=== PATIENT | male | born 1965 ===

== ENCOUNTER 2016-07-29 23:10 | Emergency (ER) | payer SELFPAY ==
[2016-07-29 23:23] VITALS: RESP 18; TEMP 97.9
--- NOTE | 2016-07-29 23:45 | ED PDOC ---
Arrival/HPI - General Chief Complaint: High Blood Pressure Time Seen by Provider: 07/29/16 23:17 Historian: Patient - History of Present Illness Narrative History of Present Illness (Text): 07/29/16 23:40 Miguel Saenz is a 51 year old male, whose past medical history includes hypertension and diabetes, who presents to the Emergency department complaining of high blood pressure. Patient states he is currently visiting from [facility] and recently ran out of sample hypertension medication a few days prior. Patient states he noted his blood pressure was elevated and is requesting medication refill.Pt. also is taking oral agent for his DM which he has. Patient denies any headache, dizziness, vision changes, focal neurological deficits, chest pain, shortness of breath, abdominal pain, nausea, vomiting, diarrhea, neck pain, or any other complaints. Symptom Onset: Gradual Symptom Course: Unchanged Activities at Onset: Rest, Light Context: Home Past Medical History - Provider Review Nursing Documentation Reviewed: Yes - Cardiac Hx Hypertension: Yes - Endocrine/Metabolic Hx Diabetes Mellitus Type 2: Yes - Psychiatric Hx Substance Use: No Family/Social History - Physician Review Nursing Documentation Reviewed: Yes Family/Social History: No Known Family HX Smoking Status: no Hx Alcohol Use: No Hx Substance Use: No Allergies/Home Meds Allergies/Adverse Reactions: Allergies No Known Allergies Allergy (Verified 07/29/16 23:23) Home Medications: Home Meds Medication Instructions Recorded Confirmed Valsartan [Diovan] 160 mg PO DAILY 07/29/16 07/29/16 Review of Systems - Physician Review All systems were reviewed & negative as marked: Yes - Review of Systems Constitutional: Normal. absent: Fevers Eyes: Normal ENT: Normal Respiratory: Normal. absent: SOB, Cough Cardiovascular: Other (+high blood pressure) Gastrointestinal: Normal. absent: Abdominal Pain, Diarrhea, Nausea, Vomiting Genitourinary Male: Normal. absent: Dysuria, Frequency, Hematuria, Urinary Output Changes Musculoskeletal: Normal. absent: Back Pain, Neck Pain Skin: Normal. absent: Rash Neurological: Normal. absent: Headache, Dizziness Endocrine: Normal Hemo/Lymphatic: Normal Psychiatric: Normal Physical Exam Vital Signs Reviewed: Yes Vital Signs Temp Pulse Resp BP Pulse Ox 07/30/16 01:38 90 18 149/98 H 99 07/30/16 00:00 98 H 158/108 H 07/29/16 23:59 91 H 158/108 H 07/29/16 23:19 97.9 F 94 H 18 158/108 H 98 Temperature: Afebrile Blood Pressure: Hypertensive Pulse: Regular Respiratory Rate: Normal Appearance: Positive for: Well-Appearing, Non-Toxic, Comfortable Pain Distress: None Mental Status: Positive for: Alert and Oriented X 3 - Systems Exam Head: Present: Atraumatic, Normocephalic Pupils: Present: PERRL Extroacular Muscles: Present: EOMI Conjunctiva: Present: Normal Mouth: Present: Moist Mucous Membranes Neck: Present: Normal Range of Motion. No: Meningeal Signs, MIDLINE TENDERNESS , Paraspinal Tenderness Respiratory/Chest: Present: Clear to Auscultation, Good Air Exchange. No: Respiratory Distress, Accessory Muscle Use Cardiovascular: Present: Regular Rate and Rhythm, Normal S1, S2. No: Murmurs Abdomen: Present: Normal Bowel Sounds. No: Tenderness, Distention, Peritoneal Signs Back: Present: Normal Inspection Upper Extremity: Present: Normal Inspection. No: Cyanosis, Edema Lower Extremity: Present: Normal Inspection. No: Edema Neurological: Present: GCS=15, CN II-XII Intact, Speech Normal, Motor Func Grossly Intact, Normal Sensory Function, Normal Cerebellar Funct, Gait Normal, Memory Normal Skin: Present: Warm, Dry, Normal Color. No: Rashes Psychiatric: Present: Alert, Oriented x 3, Normal Insight, Normal Concentration Medical Decision Making ED Course and Treatment: 07/29/16 23:40 Impression: 51 year old male complaining of high blood pressure. Differential Diagnosis include but are not limited to: hypertension Plan: -- Labs -- Yina Duckworth -- Reassess and disposition Progress Notes: - Lab Interpretations Lab Results: 07/29/16 23:35 07/29/16 23:35 Lab Results 07/30/16 01:36: POC Glucose (mg/dL) 342 H 07/29/16 23:35: Sodium 133, Potassium 4.2, Chloride 98, Carbon Dioxide 26, Anion Gap 13, BUN 12, Creatinine 0.8, Est GFR ( Amer) > 60, Est GFR (Non- Af Amer) > 60, Random Glucose 471 H*, Calcium 9.2 07/29/16 23:35: WBC 8.8, RBC 4.63, Hgb 14.4, Hct 39.9 L, MCV 86.2, MCH 31.1, MCHC 36.1, RDW 13.2, Plt Count 357, MPV 9.6 I have reviewed the lab results: Yes - Medication Orders Current Medication Orders: Discontinued Medications Amlodipine Besylate (Norvasc) 5 mg PO STAT STA Stop: 07/29/16 23:48 Last Admin: 07/29/16 23:59 Dose: 5 mg Insulin Human Regular (Humulin R) 5 units SC STAT STA Stop: 07/30/16 01:43 Last Admin: 07/30/16 01:53 Dose: 5 units Losartan Potassium (Cozaar) 25 mg PO STAT STA Stop: 07/29/16 23:49 Last Admin: 07/30/16 00:00 Dose: 25 mg - Soheilaibe Statement The provider has reviewed the documentation as recorded by the Soheilaibxu Styles All medical record entries made by the Soheilaibxu were at my direction and personally dictated by me. I have reviewed the chart and agree that the record accurately reflects my personal performance of the history, physical exam, medical decision making, and the department course for this patient. I have also personally directed, reviewed, and agree with the discharge instructions and disposition. Disposition/Present on Arrival - Present on Arrival Any Indicators Present on Arrival: No History of DVT/PE: No History of Uncontrolled Diabetes: No Urinary Catheter: No History of Decub. Ulcer: No History Surgical Site Infection Following: None - Disposition Have Diagnosis and Disposition been Completed?: Yes Diagnosis: Chronic hypertension Disposition: HOME/ ROUTINE Disposition Time: 02:53 Patient Plan: Discharge Condition: STABLE Discharge Instructions (ExitCare): Chronic Hypertension (ED) Additional Instructions: Take meds as prescribed/follow up with your doctor Prescriptions: amLODIPine [Norvasc] 5 mg PO DAILY #21 tab
[2016-07-30] LABS: HEMATOCRIT 39.9 % (42.0-52.0); MEAN CELL VOLUME 86.2 fL (80.0-105.0); MEAN CORPUSCULAR HEMOGLOBIN 31.1 pg (25.0-35.0); MEAN CORPUSCULAR HGB CONC 36.1 g/dl (31.0-37.0); MEAN PLATELET VOLUME 9.6 fl (7.0-11.0); RED CELL DISTRIBUTION WIDTH 13.2 % (11.5-14.5); WHITE BLOOD COUNT 8.8 10^3/ul (4.5-11.0)
[2016-07-30 00:22] LABS: BLOOD UREA NITROGEN 12 mg/dL (7-21); CALCIUM 9.2 mg/dL (8.4-10.5); CARBON DIOXIDE 26 mmol/L (21-33); CHLORIDE 98 mmol/L (95-110); GFR AFRICAN-AMERICAN > 60; POTASSIUM 4.2 mmol/L (3.6-5.0); SODIUM 133 mmol/L (132-148)
[2016-07-30 00:47] LABS: GLUCOSE,RANDOM 471 mg/dL (70-110)
[2016-07-30] MEDS ORDERED: Insulin Regular 1 UNITS/0.01 ML ML SC STA ×2 (01:31→01:42)
[2016-07-30 03:18] VITALS: BP 141/91; PULSE 82; O2SAT 97
== END 2016-07-30 03:19 | disposition home or self-care (01) ==
LOC: ED 23:10
DX: I10 Essential (primary) hypertension (principal); E11.9 Type 2 diabetes mellitus without complications